=== PATIENT | female | born 1940 | race African-American/Black ===

== ENCOUNTER 2017-01-15 15:12 | Inpatient (IN) | payer OTHER ==
[~2017-01-15] VITALS: Ht 162.6 cm; Wt 58.5 kg
[2017-01-15] MEDS ORDERED: IPRATROPIUM BROMIDE (0.02%) 0.5MG/2.5ML NEB HHN STA (15:36)
[2017-01-15] MEDS ORDERED: METHYLPREDNISOLONE SOD SUCC 125 MG/2 ML VIAL IV STA (15:36)
[2017-01-15] MEDS ORDERED: ALBUTEROL (0.083%) 2.5MG/3ML NEB HHN STA (15:36)
[2017-01-15 16:09] LABS: BASOPHILS % 0.8 % (0.0-2.0); EOSINOPHILS % 0.1 % (0.0-5.0); HEMATOCRIT. 39.3 % (36.0-48.0); HEMOGLOBIN. 12.5 g/dL (12.0-16.0); LYMPHOCYTES % 15.1 % (20.0-50.0); MEAN CORPUSCULAR HEMOGLOBIN 26.5 pg (28.0-32.0); MEAN CORPUSCULAR VOLUME 83.1 fL (81.0-99.0); MEAN PLATELET VOLUME 8.3 fl (7.4-10.4); MONOCYTES % 13.4 % (2.0-8.0); NEUTROPHILS % 70.6 % (40.0-76.0); PLATELET 224 x1000/uL (130-400); RED BLOOD CELL COUNT 4.72 mill/uL (4.2-5.4); RED CELL DISTRIBUTION WIDTH 15.6 % (11.6-14.6)
[2017-01-15 16:14] LABS: INR 1.2; PROTHROMBIN TIME 12.8 sec
[2017-01-15 16:16] LABS: CARBON DIOXIDE 24 mEq/L (21-32); CHLORIDE 105 mEq/L (98-107)
[2017-01-15 16:30] LABS: TROPONIN I 0.53 ng/mL (0.00-0.04)
[2017-01-15] MEDS ORDERED: ASPIRIN 325MG EC TABLET PO ONE (17:30)
[2017-01-15] MEDS ORDERED: PROMETHAZINE HCL 25MG TABLET PO PRN (18:15)
[2017-01-15] MEDS ORDERED: IPRATROPIUM/ALBUTEROL 0.5-3(2.5)MG/3ML NEB HHN ONE (19:30)
[2017-01-15] MEDS ORDERED: CIPR2.5D9 EACHEYE (22:32)
[2017-01-15] MEDS ORDERED: AMLO5TAB88 PO (22:32)
[2017-01-15] MEDS ORDERED: KETO5DRO37 EACHEYE (22:32)
[2017-01-15] MEDS ORDERED: ATROV INH (22:32)
[2017-01-15] MEDS ORDERED: BECL8.7A6 INH (22:32)
[2017-01-15] MEDS ORDERED: PRED1DRO EACHEYE (22:32)
[2017-01-15] MEDS ORDERED: SITA50TA3 PO (22:32)
[2017-01-15] MEDS ORDERED: DEXTROSE 50% WATER 50ML SYRINGE IV PRN (23:45)
[2017-01-15] MEDS ORDERED: ACETAMINOPHEN 325MG TABLET PO PRN (23:45)
[2017-01-15] MEDS ORDERED: MORPHINE SULFATE 4 MG/ML CPJ (NOT FOR IM USE) IV PRN (23:45)
[2017-01-15] MEDS ORDERED: IPRATROPIUM/ALBUTEROL 0.5-3(2.5)MG/3ML NEB HHN PRN (23:45)
[2017-01-16] MEDS ORDERED: FUROSEMIDE 40MG/4ML VIAL IVP NR
[2017-01-16] MEDS: IPRATROPIUM/ALBUTEROL 0.5-3(2.5)MG/3ML NEB HHN SCH ×6 (00:59→22:11)
[2017-01-16] MEDS ORDERED: LEVOFLOXACIN 500MG PREMIX 100 ML IV NR (01:00)
[2017-01-16 07:16] LABS: CARBON DIOXIDE 27 mEq/L (21-32); CHLORIDE 104 mEq/L (98-107); HDL CHOLESTEROL 50 mg/dL (40-59); LDL CHOLESTEROL 110 mg/dL (5-100); TROPONIN I 0.32 ng/mL (0.00-0.04)
[2017-01-16] MEDS: BLOOD SUGAR DIAGNOSTIC STRIP TEST SCH ×4 (07:39→20:47)
[2017-01-16] MEDS: FUROSEMIDE 40MG/4ML VIAL IVP SCH (08:19)
[2017-01-16] MEDS: PANTOPRAZOLE 40MG DR TABLET PO SCH (08:19)
[2017-01-16] MEDS: ASPIRIN 81MG TABLET PO SCH (08:20)
[2017-01-16] MEDS: INSULIN LISPRO 100 UNITS/ML SUBCUT SCH ×4 (08:21→20:53)
[2017-01-16] MEDS ORDERED: ENOXAPARIN 30MG/0.3ML SYR SUBCUT SCH (09:00)
[2017-01-16] MEDS: METHYLPREDNISOLONE SOD SUCC 40 MG/ML VIAL IV SCH ×2 (11:48→20:51)
[2017-01-16] MEDS ORDERED: IPRATROPIUM/ALBUTEROL 0.5-3(2.5)MG/3ML NEB HHN SCH (12:00)
[2017-01-16 12:12] LABS: BG BASE EXCESS 2.6 mmol/L (-2.0-2.0); BG CARBOXYHEMOGLOBIN 1.1 % (0.5-1.5); BG DEOXYHEMOGLOBIN 1.1 % (0.0-5.0); BG FRACTION INSPIRED OXYGEN 36; BG HCO3 ACT 27.3 mmol/L (22.0-26.0); BG METHEMOGLOBIN 0.4 % (0.0-1.5); BG OXYGEN SATURATION 98.9 % (92.0-98.5); BG OXYHEMOGLOBIN 97.4 % (94.0-97.0); BG PCO2 42.4 mmHg (35.0-45.0); BG PH 7.427 (7.350-7.450); BG PO2 139.2 mmHg (75.0-100.0); BG SAMPLE SITE RIGHT BRACHIAL; BG TOTAL HEMOGLOBIN 13.2 g/dL (12.0-18.0); BG VENT MODE NASAL CANNULA
[2017-01-16] MEDS ORDERED: CLONIDINE 0.2MG TABLET PO PRN (13:15)
[2017-01-16] MEDS ORDERED: CLONIDINE 0.1MG TABLET PO PRN (13:15)
[2017-01-16] MEDS: AMLODIPINE 5MG TABLET PO SCH (15:34)
[2017-01-16] MEDS: ATORVASTATIN CALCIUM 20MG TABLET PO SCH (20:51)
[2017-01-16] MEDS: GUAIFENESIN/CODEINE 100-10MG/5ML UDC PO PRN (21:48)
[2017-01-17] MEDS: IPRATROPIUM/ALBUTEROL 0.5-3(2.5)MG/3ML NEB HHN SCH ×5 (00:37→16:54)
[2017-01-17] MEDS: LEVOFLOXACIN 250MG PREMIX 50 ML IV SCH (02:42)
[2017-01-17] MEDS: METHYLPREDNISOLONE SOD SUCC 40 MG/ML VIAL IV SCH ×3 (02:43→20:15)
[2017-01-17 05:23] LABS: BASOPHILS % 0.1 % (0.0-2.0); HEMATOCRIT. 38.5 % (36.0-48.0); HEMOGLOBIN. 12.5 g/dL (12.0-16.0); LYMPHOCYTES % 8.9 % (20.0-50.0); MEAN CORPUSCULAR HEMOGLOBIN 26.6 pg (28.0-32.0); MEAN CORPUSCULAR VOLUME 82.2 fL (81.0-99.0); MEAN PLATELET VOLUME 8.7 fl (7.4-10.4); MONOCYTES % 4.4 % (2.0-8.0); NEUTROPHILS % 86.6 % (40.0-76.0); PLATELET 228 x1000/uL (130-400); RED BLOOD CELL COUNT 4.69 mill/uL (4.2-5.4); RED CELL DISTRIBUTION WIDTH 15.8 % (11.6-14.6)
[2017-01-17 05:42] LABS: CARBON DIOXIDE 30 mEq/L (21-32); CHLORIDE 103 mEq/L (98-107); CREATINE KINASE 511 IU/L (26-192); CREATINE KINASE MB FRACTION 8.9 ng/mL (0.5-3.6); HDL CHOLESTEROL 51 mg/dL (40-59); LDL CHOLESTEROL 108 mg/dL (5-100); TROPONIN I 0.35 ng/mL (0.00-0.04)
[2017-01-17] MEDS ORDERED: LACTULOSE 20G/30ML UDC PO PRN (06:30)
[2017-01-17] MEDS: BLOOD SUGAR DIAGNOSTIC STRIP TEST SCH ×4 (07:20→21:11)
[2017-01-17] MEDS: ASPIRIN 81MG TABLET PO SCH (08:35)
[2017-01-17] MEDS: AMLODIPINE 5MG TABLET PO SCH (08:35)
[2017-01-17] MEDS: PANTOPRAZOLE 40MG DR TABLET PO SCH (08:35)
[2017-01-17] MEDS: FUROSEMIDE 40MG/4ML VIAL IVP SCH (08:35)
[2017-01-17] MEDS: ENOXAPARIN 40MG/0.4ML SYR SUBCUT SCH (08:36)
[2017-01-17] MEDS: INSULIN LISPRO 100 UNITS/ML SUBCUT SCH ×4 (08:37→21:11)
[2017-01-17 12:22] LABS: BG BASE EXCESS 6.7 mmol/L (-2.0-2.0); BG CARBOXYHEMOGLOBIN 1.3 % (0.5-1.5); BG DEOXYHEMOGLOBIN 6.4 % (0.0-5.0); BG FRACTION INSPIRED OXYGEN 21; BG HCO3 ACT 32.3 mmol/L (22.0-26.0); BG METHEMOGLOBIN 0.3 % (0.0-1.5); BG OXYGEN SATURATION 93.5 % (92.0-98.5); BG PCO2 49.5 mmHg (35.0-45.0); BG PH 7.432 (7.350-7.450); BG PO2 68.5 mmHg (75.0-100.0); BG SAMPLE SITE LEFT RADIAL; BG TOTAL HEMOGLOBIN 14.3 g/dL (12.0-18.0); BG VENT MODE ROOM AIR
[2017-01-17] MEDS: GUAIFENESIN/CODEINE 100-10MG/5ML UDC PO PRN (13:21)
[2017-01-17] MEDS ORDERED: MAGNESIUM 2 G PREMIX 50 ML IV NR (20:00)
[2017-01-17] MEDS: ATORVASTATIN CALCIUM 20MG TABLET PO SCH (21:10)
[2017-01-18] MEDS: IPRATROPIUM/ALBUTEROL 0.5-3(2.5)MG/3ML NEB HHN SCH ×4 (00:42→11:24)
[2017-01-18] MEDS: LEVOFLOXACIN 250MG PREMIX 50 ML IV SCH (00:50)
[2017-01-18] MEDS: METHYLPREDNISOLONE SOD SUCC 40 MG/ML VIAL IV SCH ×2 (03:58→11:19)
[2017-01-18] MEDS: BLOOD SUGAR DIAGNOSTIC STRIP TEST SCH (07:10)
[2017-01-18] MEDS: INSULIN LISPRO 100 UNITS/ML SUBCUT SCH (07:33)
[2017-01-18] MEDS ORDERED: FAMOTIDINE 20MG TABLET PO SCH (07:40)
[2017-01-18] MEDS: AMLODIPINE 5MG TABLET PO SCH (08:34)
[2017-01-18] MEDS: FUROSEMIDE 40MG/4ML VIAL IVP SCH (08:35)
[2017-01-18] MEDS: ENOXAPARIN 40MG/0.4ML SYR SUBCUT SCH (08:35)
[2017-01-18] MEDS: ASPIRIN 81MG TABLET PO SCH (08:35)
[2017-01-18 12:00] VITALS: BP 154/87
== END 2017-01-18 14:33 | disposition home or self-care (01) | DRG 291 ==
LOC: ER 15:27 → INTOOBSV 19:24 → OBSVTOIN 19:24 → 7WST 19:24 → ENRESERV 20:09 → EDBEDREQ 20:21
PROVIDERS: ADMIT Internal Medicine; ATTEND Internal Medicine
PROC: 5A09357 Assistance with Respiratory Ventilation, Less than 24 Consecutive Hours, Continuous Positive Airway Pressure (ICD-10-PCS; principal; 2017-01-15)
DX: I11.0 Hypertensive heart disease with heart failure (principal); J96.01 Acute respiratory failure with hypoxia; J45.901 Unspecified asthma with (acute) exacerbation; I50.31 Acute diastolic (congestive) heart failure; E11.9 Type 2 diabetes mellitus without complications; I27.2 Other secondary pulmonary hypertension; I35.0 Nonrheumatic aortic (valve) stenosis; M79.606 Pain in leg, unspecified; J42 Unspecified chronic bronchitis
CPT/HCPCS: 36415; 36600; 71010; 80053; 80061; 82375; 82550; 82553; 82805; 82962; 83735; 83880; 84443; 84484; 85025; 85379; 85610; 93005; 93306; 93970; 94640; 94660; 96374; 97162; 99285; J1650; J1815; J1940; J1956; J2920; J2930; J3475; J7050; J7611; J7620